=== PATIENT | female | born 1965 | race Caucasian/White ===

== ENCOUNTER 2017-06-09 11:57 | Emergency (ER) | payer OTHER ==
[2017-06-09 11:58] VITALS: BMI 32.3
[2017-06-09 12:07] VITALS: TEMP 98.3
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
--- NOTE | 2017-06-09 15:16 | RAD ---
PROCEDURE: Radiographs of the Left Shoulder HISTORY: t COMPARISON: No prior. FINDINGS: BONES: Normal. No fracture. JOINTS: Normal. Glenohumeral and acromioclavicular joints preserved. No osteoarthritis. SOFT TISSUES: Normal. OTHER FINDINGS: None. IMPRESSION: Normal radiographs of the left shoulder.
--- NOTE | 2017-06-09 15:18 | RAD ---
PROCEDURE: Radiographs of the Chest and Left Ribs. HISTORY: t COMPARISON: None available. TECHNIQUE: Frontal radiograph of the chest and multiple oblique radiographs of the left ribs were obtained. FINDINGS: LEFT RIBS: No fracture or focal lesion visualized. LUNGS: Clear. PLEURA: No pneumothorax or pleural fluid. CARDIOVASCULAR: Normal sized heart. No pulmonary vascular congestion. OTHER FINDINGS: None. IMPRESSION: Unremarkable radiographs of the chest and left ribs. No left rib fracture.
--- NOTE | 2017-06-09 15:19 | RAD ---
PROCEDURE: Cervical Spine Radiographs. HISTORY: Pain. COMPARISON: None. FINDINGS: BONES: Alignment maintained. No fracture. Dens Intact. DISC SPACES: Normal. SOFT TISSUES: Normal. No prevertebral soft tissue swelling. OTHER FINDINGS: None. IMPRESSION: Normal cervical spine radiographs
[2017-06-09 15:40] VITALS: BP 125/82; PULSE 76; RESP 16; O2SAT 100
== END 2017-06-09 15:20 | disposition home or self-care (01) ==
LOC: ED 11:57
DX: S20.212A Contusion of left front wall of thorax, initial encounter (principal); S16.1XXA Strain of muscle, fascia and tendon at neck level, initial encounter; S43.402A Unspecified sprain of left shoulder joint, initial encounter; V49.59XA Passenger injured in collision with other motor vehicles in traffic accident, initial encounter; Y92.488 Other paved roadways as the place of occurrence of the external cause
CPT/HCPCS: 71101; 72050; 73030; 96372; 99285; J1885

== ENCOUNTER 2019-02-11 21:01 | Emergency (ER) | payer MEDICARE, OTHER | END 2019-02-12 03:50 | disposition home or self-care (01) | LOC: ED 02-12 03:50 ==